=== PATIENT | male | born 1945 | race Caucasian/White ===

== ENCOUNTER → 2017-11-12 | Outpatient (CLI) | payer OTHER ==
[~2017-11-12] MED LIST: ASPIR 8181 M1 PO; GLIMEPIRIDE4 MG PO; LISINOPRIL10 MG PO; NOVOLIN N100 UNITS/ SQ; PRAVASTATIN SOD40 MG PO
== END | disposition home or self-care (01) ==
LOC: PICC 12:50
DX: M86.9 Osteomyelitis, unspecified (principal)
CPT/HCPCS: 76937